=== PATIENT | female | born 1945 | race Caucasian/White ===

== ENCOUNTER 2019-04-16 22:59 | Emergency (ER) | payer OTHER, MEDICARE ==
[2019-04-16 23:04] VITALS: BP 151/77; PULSE 79; TEMP 98.2; BMI 23.6
[2019-04-16] MEDS ORDERED: DOXYCYCLINE HYCLATE 100 MG CAPSULE PO ONE ×2 (23:13→23:15)
--- NOTE | 2019-04-16 23:15 | PDOC ---
History of Present Illness - General Chief Complaint: Bite Stated Complaint: TICK BITE Time Seen by Provider: 04/16/19 23:13 History Source: Patient Exam Limitations: No Limitations - History of Present Illness Initial Comments: 04/16/19 23:16 This is a 73-year-old female who comes in complaining of a tick bite to her left groin area. Patient removed the tick but some of the body/mouthparts were still left in the wound so she comes in for evaluation. Patient thinks the tick may have been there several days as there is a fairly significant localized reaction. Allergies: as per nursing notes Past Medical History: none Social history: Lives with family. No smoking. No alcohol. No illicit drugs. Surgical history: None General: No fevers or chills, no weakness, no weight loss HEENT: No change in vision. No sore throat,. No ear pain CardioVascular: no chest discomfort. No shortness of breath Respiratory:No cough, or wheezing. Gastrointestinal: no nausea, vomiting, diarrhea or constipation, No rectal bleeding Genitourinary: No dysuria, hematuria, or frequency Musculoskeletal: No joint or muscle pain or swelling Neurologic: No headache, vertigo, dizziness or loss of consciousness Psychiatric: nor depression Skin tick bite with localized reaction to left groin area Endocrine: no increased thirst or abnormal weight change Allergic: no skin or latex allergy All other systems reviewed and normal GENERAL: The patient is awake, alert, and fully oriented, in no acute distress. HEAD: Normal with no signs of trauma. EYES: Pupils equal, round and reactive to light, extraocular movements intact, sclera anicteric, conjunctiva clear. EXTREMITIES:atraumatic, Normal range of motion, no edema. Left groin area there is a area of erythema with a dark area in the center that appears to be mouthparts a tick. NEUROLOGICAL: Normal speech, normal gait. PSYCH: Normal mood, normal affect. SKIN: Warm, Dry, normal turgor, no rashes or lesions note. Procedure note area anesthetized with 1% lidocaine and Tick mouthparts were removed with a 18-gauge needle and tweezers. Patient tolerated well. Bacitracin and a Band-Aid were applied. Assessment and plan: This is a 73-year-old female with a tick bite. Patient removed the tick but left some body parts/mouthparts in the wound. I removed those and patient was given doxycycline 200 mg prophylactically to prevent Lyme infection. Patient discharged home. Past History - Past Medical History Allergies/Adverse Reactions: Allergies Allergy/AdvReac Type Severity Reaction Status Date / Time No Known Allergies Allergy Verified 04/16/19 23:00 Home Medications: Ambulatory Orders NK [No Known Home Medication] 04/16/19 COPD: No Other medical history: Pt denies - Suicide/Smoking/Psychosocial Hx Smoking Status: No Smoking History: Never smoked Have you smoked in the past 12 months: No Number of Cigarettes Smoked Daily: 0 Information on smoking cessation initiated: No Hx Alcohol Use: No Drug/Substance Use Hx: No *Physical Exam - Vital Signs Last Vital Signs Temp Pulse Resp BP Pulse Ox 98.2 F 79 18 151/77 100 04/16/19 23:01 04/16/19 23:01 04/16/19 23:01 04/16/19 23:01 04/16/19 23:01 *DC/Admit/Observation/Transfer Diagnosis at time of Disposition: Tick bite Qualifiers: Encounter type: initial encounter Qualified Code(s): W57.XXXA - Bitten or stung by nonvenomous insect and other nonvenomous arthropods, initial encounter - Discharge Dispostion Disposition: HOME Decision to Admit order: No - Referrals - Patient Instructions Additional Instructions: Keep the wound clean and reapply bacitracin and a Band-Aid to a couple times a day for the next 2-3 days or until it has scabbed over. Return to the emergency department immediately with ANY new, persistent or worsening symptoms. Continue any medications as previously prescribed by your physician. You should follow up with your primary doctor as soon as possible regarding today's emergency department visit. . Please make sure your doctor reviews the results of your emergency evaluation. Thank you for coming to the Emergency Department today for your care. It was a pleasure to see you today. Please note that your evaluation is INCOMPLETE until you follow-up with your doctor. - Post Discharge Activity
== END 2019-04-16 23:41 | disposition home or self-care (01) ==
LOC: FER 22:59
PROC: 0JC80ZZ Extirpation of Matter from Abdomen Subcutaneous Tissue and Fascia, Open Approach (ICD-10-PCS; principal; 2019-04-16)
DX: S31.154A Open bite of abdominal wall, left lower quadrant without penetration into peritoneal cavity, initial encounter (principal); W57.XXXA Bitten or stung by nonvenomous insect and other nonvenomous arthropods, initial encounter; Y93.89 Activity, other specified; Y92.89 Other specified places as the place of occurrence of the external cause
CPT/HCPCS: 20102; 99281-25

== ENCOUNTER 2025-08-19 10:25 | Emergency (ER) | payer OTHER, MEDICARE ==
[2025-08-19 11:05] VITALS: BP 139/64; PULSE 92; RESP 20; TEMP 98.6; BMI 23.1
== END 2025-08-19 11:50 | disposition home or self-care (01) ==
LOC: FER 10:25
DX: R60.0 Localized edema (principal)
CPT/HCPCS: 93971-TC-RT; 99284-25